=== PATIENT | male | born 1960 | race American Indian/Alaskan Native ===

== ENCOUNTER 2017-03-04 10:52 | Emergency (ER) | payer MEDICAID ==
[2017-03-04 11:09] VITALS: BMI 22.7
[2017-03-04 11:20] VITALS: BP 136/63; PULSE 83; RESP 16; TEMP 97.1; O2SAT 100
--- NOTE | 2017-03-04 13:07 | ED PDOC ---
Lower Extremity Pain/Injury Time Seen by Provider: 03/04/17 11:31 Chief Complaint (Nursing): Lower Extremity Problem/Injury Chief Complaint (Provider): FOOT PAIN History Per: Patient (57 Y/O MALE H/O BUNION REPAIR BY DR. GUIDRY HERE WITH RIGHT FOOT PAIN WORSENING WITH WALKING. PATIENT CONCERNED REGARDING SCREWS THAT ARE IN PLACE OF FOOT. DENIES ANY FEVERS/CHILLS/ETC. ) Past Medical History Reviewed: Historical Data, Nursing Documentation, Vital Signs Vital Signs: Last Vital Signs Temp 97.1 F L 03/04/17 11:20 Pulse 83 03/04/17 11:20 Resp 16 03/04/17 11:20 BP 136/63 03/04/17 11:20 Pulse Ox 100 03/04/17 11:20 - Medical History PMH: Seizures Denies: Chronic Kidney Disease - Family History Family History: States: Unknown Family Hx - Home Medications Home Medications: Ambulatory Orders Medication Instructions Recorded Cephalexin [Keflex] 500 mg PO BID 10/13/15 Enoxaparin [Lovenox] 40 mg SC DAILY 10/13/15 Oxycodone HCl/Acetaminophen 5 - 325 mg PO .Q4-6 PRN 10/13/15 [Percocet 5-325 mg Tablet] Meloxicam 7.5 mg PO DAILY #7 tablet 03/04/17 - Allergies Allergies/Adverse Reactions: Allergies Allergy/AdvReac Type Severity Reaction Status Date / Time No Known Allergies Allergy Verified 11/05/14 12:37 Review of Systems ROS Statement: Except As Marked, All Systems Reviewed And Found Negative Physical Exam - Reviewed Nursing Documentation Reviewed: Yes Vital Signs Reviewed: Yes - Physical Exam Appears: Positive for: Well, Non-toxic, No Acute Distress Head Exam: Positive for: ATRAUMATIC, NORMAL INSPECTION, NORMOCEPHALIC Skin: Positive for: Normal Color, Warm, DRY Eye Exam: Positive for: EOMI, Normal appearance, PERRL ENT: Positive for: Normal ENT Inspection Neck: Positive for: Normal, Painless ROM Cardiovascular/Chest: Positive for: Regular Rate, Rhythm Respiratory: Positive for: CNT, Normal Breath Sounds Gastrointestinal/Abdominal: Positive for: Normal Exam, Bowel Sounds, Soft Back: Positive for: Normal Inspection Extremity: Positive for: Normal ROM, Tenderness (TENDERNESS NOTED DORSUM OF FOOT. NO ERYTHEMA OR SIGNS OF SWELLING. 2+ DP) Neurologic/Psych: Positive for: Alert, Oriented - ECG O2 Sat by Pulse Oximetry: 100 - Progress ED Course And Treament: XRY OF FOOT: SCREWS NOTED. SEEN BY PODIATRY DIAGNOSIS OF TENDONITIS AND F/U IN 1 WEEK AFTER USE OF NSAIDS. Disposition - Clinical Impression Clinical Impression: Tendonitis - Patient ED Disposition Is Patient to be Admitted: No - Disposition Referrals: Podiatry Clinic [Outside] Disposition: Routine/Home Disposition Time: 13:07 Condition: FAIR Additional Instructions: F/U WITH DR. GUIDRY NEXT FRIDAY OR FRIDAY IN PODIATRY CLINIC Prescriptions: Meloxicam 7.5 mg PO DAILY #7 tablet Instructions: Tendinitis (ED) Forms: [facility] ED School/Work Excuse
--- NOTE | 2017-03-04 20:01 | CP.PCM.CON ---
History of Present Illness - History of Present Illness History of Present Illness: 57 year old male patient seen in ED after request for podiatry consultation for left foot and leg pain. Patient states that pain in his lower limb started this past Friday. Patient states that he spent the weekend in the [facility] and was walking around in flip flops or barefoot while in the sand. Patient states this pain develops after long periods of walking. Patient states that he feels the pain on the top of his midfoot and also in his magallanes. Patient describes the pain as achy. Patient frequently wears slippers without good arch support. Patient states he had left foot 1st MPJ fusion done one year ago by Dr. Briones. Patient denies pain to his surgical sites. Patient denies N/V/F/D/C/ SOB/CP. No other pedal complaints at this time. PMH: seizures PSH: Left ankle arthroscopy, left 1st MPJ fusion SH: unknown FH: noncontributory Meds: see meds list All: NKDA Review of Systems - Review of Systems All systems: reviewed and no additional remarkable complaints except (as per HPI ) Past Patient History - Infectious Disease Hx of Infectious Diseases: None - Past Medical History & Family History Past Medical History?: No - Past Social History Smoking Status: Never Smoked - CARDIAC Hx Cardiac Disorders: No - PULMONARY Hx Respiratory Disorders: No - NEUROLOGICAL Hx Seizures: Yes - HEENT Hx HEENT Problems: No - RENAL Hx Chronic Kidney Disease: No - ENDOCRINE/METABOLIC Hx Endocrine Disorders: No - HEMATOLOGICAL/ONCOLOGICAL Hx Blood Disorders: No - INTEGUMENTARY Hx Dermatological Problems: No - MUSCULOSKELETAL/RHEUMATOLOGICAL Hx Musculoskeletal Disorders: No Hx Falls: No - GENITOURINARY/GYNECOLOGICAL Hx Genitourinary Disorders: No - PSYCHIATRIC Hx Physical Abuse: No Hx Substance Use: No - SURGICAL HISTORY Hx Surgeries: Yes Other/Comment: Rigth foot - ANESTHESIA Hx Anesthesia: Yes Hx Anesthesia Reactions: No Hx Malignant Hyperthermia: No Meds Home Medications: Home Medication List Medication Instructions Recorded Confirmed Type Meloxicam 7.5 mg PO DAILY #7 tablet 03/04/17 Rx Allergies/Adverse Reactions: Allergies Allergy/AdvReac Type Severity Reaction Status Date / Time No Known Allergies Allergy Verified 11/05/14 12:37 Physical Exam - Constitutional Appears: Well, Non-toxic, Toxic - Extremities Exam Additional comments: RLE focused physical exam Vasc: DP and PT pulse palpalbe 2/4. CFT <3 seconds to digits x5. TG WNL. No edema noted. Neuro: Gross sensation intact Derm: Well-healed cicatrices from previous 1st MPJ fusion and Delfino osteotomy. No open lesions, rashes, or subcutaneous nodules noted. No erythema noted. Ortho: No pain on palpation noted to foot or leg. Ankle joint ROM full without pain or crepitus noted. - Neurological Exam Neurological exam: Alert, Oriented x3 - Psychiatric Exam Psychiatric exam: Normal Affect, Normal Mood Results - Vital Signs Recent Vital Signs: Last Vital Signs Temp 97.1 F L 03/04/17 11:20 Pulse 83 03/04/17 11:20 Resp 16 03/04/17 11:20 BP 136/63 03/04/17 11:20 Pulse Ox 100 03/04/17 13:09 Assessment & Plan - Assessment and Plan (Free Text) Assessment: 57 year old male with RLE tendinitis and medial tibial stress syndrome Plan: Patient examined and evaluated in ED Discussed with attending Dr. Briones Chart, labs, vitals reviewed = afebrile R Xrays reviewed = no acute fracture noted. no breaks in the soft tissue envelope Recommend RICE therapy Recommend meloxicam 7.5 mg qd Educated patient on importance of wearing stable shoes with good support to prevent inflammation Stable from podiatry standpoint Thank you for this consult, please reconsult again as needed - Date & Time Date: 03/04/17 Time: 12:00
--- NOTE | 2017-03-05 10:43 | RAD ---
PROCEDURE: Right Foot Radiographs. HISTORY: FOOT PAIN COMPARISON: Prior right foot radiographs 08/28/2016. FINDINGS: BONES: Postop changes are again seen with bunionectomy/arthrodesis of the 1st metatarsal bone, 1st interphalangeal joint with the joint fused by a solitary separate screw as well as compression plate and 5 compression screws. Postop changes are also seen related to the 2nd and 4th metatarsal bones distally. Acquired fusion of the proximal end of the 3rd digit is suggested as well as at the 4th digit with the distal interphalangeal also likely fused. No acute fracture dislocation. . JOINTS: Normal. SOFT TISSUES: Normal. OTHER FINDINGS: Pes planus reiterated. Incidental vascular calcifications seen at the hindfoot and ankle soft tissues. IMPRESSION: 1. No acute fracture or dislocation identified. 2. Postop changes seen at the 2nd and 4th metatarsal bones with arthrodesis identified at the 1st metatarsal phalangeal joint as per above. Fusion of the proximal interphalangeal joints of the 3rd and 4th digits is appreciated as well as likely distal implant joint of the 4th digit. 3. Pes planus. 4. No prominent interval change greater prior radiograph 08/28/2016. .
== END 2017-03-04 13:15 | disposition home or self-care (01) ==
LOC: H.ER 10:52
DX: M65.271 Calcific tendinitis, right ankle and foot (principal)

== ENCOUNTER 2017-03-05 07:55 | Emergency (ER) | payer MEDICAID, OTHER ==
[2017-03-05 07:59] VITALS: BP 129/77; PULSE 84; TEMP 97; O2SAT 98
[2017-03-05 08:00] VITALS: BMI 25.6
--- NOTE | 2017-03-05 09:08 | ED PDOC ---
Lower Extremity Pain/Injury Time Seen by Provider: 03/05/17 08:11 Chief Complaint (Nursing): Lower Extremity Problem/Injury Chief Complaint (Provider): right foot pain History Per: Patient History/Exam Limitations: no limitations Onset/Duration Of Symptoms: Days (x 1 week ) Additional Complaint(s): Cristobal Luna is a 57 year old male, with no previous medical history who presents to the ED with complaints of right foot pain to the dorsal aspect of the foot ongoing for the past week. Patient reports being seen in the ED yesterday and reports no relief with medication provided. He reports experiencing similar symptoms last year and was told he had arthritis. PMD: none provided Past Medical History Reviewed: Historical Data, Nursing Documentation, Vital Signs Vital Signs: Last Vital Signs Temp 97 F L 03/05/17 07:58 Pulse 84 03/05/17 07:58 Resp BP 129/77 03/05/17 07:58 Pulse Ox 98 03/05/17 07:58 - Medical History PMH: Seizures Denies: Chronic Kidney Disease - Family History Family History: States: Unknown Family Hx - Home Medications Home Medications: Ambulatory Orders Medication Instructions Recorded Cephalexin [Keflex] 500 mg PO BID 10/13/15 Enoxaparin [Lovenox] 40 mg SC DAILY 10/13/15 Oxycodone HCl/Acetaminophen 5 - 325 mg PO .Q4-6 PRN 10/13/15 [Percocet 5-325 mg Tablet] Meloxicam 7.5 mg PO DAILY #7 tablet 03/04/17 - Allergies Allergies/Adverse Reactions: Allergies Allergy/AdvReac Type Severity Reaction Status Date / Time No Known Allergies Allergy Verified 03/05/17 08:24 Review of Systems ROS Statement: Except As Marked, All Systems Reviewed And Found Negative Musculoskeletal: Positive for: Foot Pain (right ) Physical Exam - Reviewed Nursing Documentation Reviewed: Yes Vital Signs Reviewed: Yes - Physical Exam Appears: Positive for: Well, Non-toxic, No Acute Distress Head Exam: Positive for: ATRAUMATIC, NORMAL INSPECTION, NORMOCEPHALIC Skin: Positive for: Normal Color, Warm, Dry Eye Exam: Positive for: Normal appearance Neck: Positive for: Normal, Painless ROM Cardiovascular/Chest: Positive for: Regular Rate, Rhythm Respiratory: Positive for: CNT, Normal Breath Sounds Gastrointestinal/Abdominal: Positive for: Normal Exam, Bowel Sounds, Soft. Negative for: Tenderness Back: Positive for: Normal Inspection Extremity: Positive for: Normal ROM. Negative for: Tenderness ( no palpable tenderness to the foot), Pedal Edema, Calf Tenderness, Deformity, Swelling Neurologic/Psych: Positive for: Alert, Oriented - ECG O2 Sat by Pulse Oximetry: 98 (RA) Pulse Ox Interpretation: Normal Medical Decision Making Medical Decision Making: Initial Impression: antalgic gait Initial Plan: * podiatry consult 09:00 Podiatry consulted and will be seeing patient at bedside. Scribe Attestation: Documented by Layla Montague, acting as a scribe for Deisy Guillen MD. Provider Scribe Attestation: All medical record entries made by the Scribe were at my direction and personally dictated by me. I have reviewed the chart and agree that the record accurately reflects my personal performance of the history, physical exam, medical decision making, and the department course for this patient. I have also personally directed, reviewed, and agree with the discharge instructions and disposition. 10.15 patient seen by podiatry. injection done in the foot with decadron and marcaine by resident. Patient will followup in the podiatry clinic. Disposition - Clinical Impression Clinical Impression: Foot pain, right - Patient ED Disposition Is Patient to be Admitted: No Doctor Will See Patient In The: Office Counseled Patient/Family Regarding: Diagnosis, Need For Followup - Disposition Referrals: Podiatry Clinic [Outside] Disposition: Routine/Home Disposition Time: 10:15 Condition: IMPROVED Forms: [facility] [employer] [facility] (American) - POA Present On Arrival: None
[2017-03-05] MEDS ORDERED: Dexamethasone 4 mg/1 ml IM STA (10:06)
[2017-03-05] MEDS ORDERED: Bupivacaine 0.5% Inj(30mL) IJ ONE (10:07)
[2017-03-05] MEDS ORDERED: Bupivacaine HCl 0.5% PF (30 ml) Inj ONE (10:11)
--- NOTE | 2017-03-05 11:41 | CP.PCM.CON ---
History of Present Illness - History of Present Illness History of Present Illness: 57 year old male patient seen in ED after request for podiatry consultation for right foot and leg pain. Patient presented to the ED for the same chief complaint and was discharged with Rx meloxicam and RICE therapy, and was educated on the importance of wearing supportive shoes while ambulating. Patient states the Meloxicam has not helped and he still experiences pain with ambulation. Patient states that he still experiences pain around 8/10 whenever ambulating for long periods of time. Patient states that he occasionally feels pain on the inside of his wheel as well. Patient states that he has had a similar problem in the past in his left foot and states that an injection helped to alleviate the pain. Patient denies N/V/F/D/C/SOB/calf pain. No other pedal complaints at this time. PMH: seizures PSH: Left ankle arthroscopy, left 1st MPJ fusion SH: unknown FH: noncontributory Meds: see meds list All: NKDA Review of Systems - Review of Systems All systems: reviewed and no additional remarkable complaints except (as per HPI ) Past Patient History - Infectious Disease Hx of Infectious Diseases: None - Past Medical History & Family History Past Medical History?: No - Past Social History Smoking Status: Never Smoked - CARDIAC Hx Cardiac Disorders: No - PULMONARY Hx Respiratory Disorders: No - NEUROLOGICAL Hx Seizures: Yes - HEENT Hx HEENT Problems: No - RENAL Hx Chronic Kidney Disease: No - ENDOCRINE/METABOLIC Hx Endocrine Disorders: No - HEMATOLOGICAL/ONCOLOGICAL Hx Blood Disorders: No - INTEGUMENTARY Hx Dermatological Problems: No - MUSCULOSKELETAL/RHEUMATOLOGICAL Hx Musculoskeletal Disorders: No Hx Falls: No - GENITOURINARY/GYNECOLOGICAL Hx Genitourinary Disorders: No - PSYCHIATRIC Hx Physical Abuse: No Hx Substance Use: No - SURGICAL HISTORY Hx Surgeries: Yes Other/Comment: Right foot - ANESTHESIA Hx Anesthesia: Yes Hx Anesthesia Reactions: No Hx Malignant Hyperthermia: No Meds Allergies/Adverse Reactions: Allergies Allergy/AdvReac Type Severity Reaction Status Date / Time No Known Allergies Allergy Verified 03/05/17 08:24 Physical Exam - Constitutional Appears: Well, Non-toxic, No Acute Distress - Extremities Exam Additional comments: RLE focused physical exam Vasc: DP and PT pulse palpable 2/4. CFT <3 seconds to digits x5. TG warm to cool. No edema noted. Neuro: Gross sensation intact Derm: Well-healed cicatrices from previous 1st MPJ fusion and Delfino osteotomy. No open lesions, rashes, or subcutaneous nodules noted. No erythema noted. Ortho: No pain on palpation noted to foot or leg. Ankle joint ROM full without pain or crepitus noted. Collapse of medial arch. Patient has an antalgic, apropulsive gait. - Neurological Exam Neurological exam: Alert, Oriented x3 - Psychiatric Exam Psychiatric exam: Normal Affect, Normal Mood Results - Vital Signs Recent Vital Signs: Last Vital Signs Temp 97 F L 03/05/17 07:58 Pulse 84 03/05/17 07:58 Resp BP 129/77 03/05/17 07:58 Pulse Ox 98 03/05/17 11:01 Assessment & Plan - Assessment and Plan (Free Text) Assessment: 57 year old male with RLE tendinitis, arthritis, and medial tibial stress syndrome Plan: Patient examined and evaluated in ED Discussed with attending Dr. Briones Chart, labs, vitals reviewed = afebrile 3ccs 2:1 mixture of 0.5% marcaine plain and 4mg/mL dexamethasone in R TNJ and metatarsal cuneiform joint. Patient tolerated injection well. Recommend continuing RICE therapy Recommend continuing meloxicam 7.5 mg qd Educated patient on importance of wearing stable shoes with good support to prevent inflammation Stable from podiatry standpoint Patient is to follow up in the podiatry clinic with Dr. Briones next week Thank you for this consult, please re-consult again as needed
== END 2017-03-05 11:40 | disposition home or self-care (01) ==
LOC: H.ER 07:55
DX: S83.90XA Sprain of unspecified site of unspecified knee, initial encounter (principal); Y92.89 Other specified places as the place of occurrence of the external cause

== ENCOUNTER 2017-12-10 11:56 | Emergency (ER) | payer OTHER ==
[2017-12-10 11:56] VITALS: BMI 25.6
[2017-12-10 12:28] VITALS: BP 167/81; PULSE 85; RESP 16; TEMP 98; O2SAT 99
--- NOTE | 2017-12-10 12:52 | ED PDOC ---
Upper Extremity Pain/Injury Time Seen by Provider: 12/10/17 12:30 Chief Complaint (Nursing): Finger,Hand,&Wrist Chief Complaint (Provider): Finger,Hand,&Wrist History Per: Patient History/Exam Limitations: no limitations Onset/Duration Of Symptoms: Days (2-3) Current Symptoms Are (Timing): Still Present Additional Complaint(s): 57 y/o male presents to the ED for automatic swelling to the right side of hand x 2-3 days. Patient also noticed swelling to his right thumb x 2-3 days. He complains of pain to the right hand but not right thumb. Patient took Aleve for the pain and used epsom salt which caused swelling to decrease. Denies any fever , rash, numbness, or tingling. PMD: Dr. Geoffrey Alaniz Past Medical History Reviewed: Historical Data, Nursing Documentation, Vital Signs Vital Signs: Last Vital Signs Temp 98.0 F 12/10/17 12:24 Pulse 85 12/10/17 12:24 Resp 16 12/10/17 12:24 BP 167/81 H 12/10/17 12:24 Pulse Ox 99 12/10/17 12:24 - Medical History PMH: Seizures Denies: Chronic Kidney Disease - Surgical History Surgical History: No Surg Hx - Family History Family History: States: No Known Family Hx - Home Medications Home Medications: Ambulatory Orders Medication Instructions Recorded Cephalexin [Keflex] 500 mg PO BID 10/13/15 Enoxaparin [Lovenox] 40 mg SC DAILY 10/13/15 Oxycodone HCl/Acetaminophen 5 - 325 mg PO .Q4-6 PRN 10/13/15 [Percocet 5-325 mg Tablet] Meloxicam 7.5 mg PO DAILY #7 tablet 03/04/17 Meloxicam [Mobic] 7.5 mg PO DAILY PRN #10 tab 12/10/17 - Allergies Allergies/Adverse Reactions: Allergies Allergy/AdvReac Type Severity Reaction Status Date / Time No Known Allergies Allergy Verified 03/05/17 08:24 Review of Systems ROS Statement: Except As Marked, All Systems Reviewed And Found Negative Musculoskeletal: Positive for: Hand Pain (right hand pain), Other (swelling to right thumb) Skin: Negative for: Rash Neurological: Negative for: Numbness Physical Exam - Reviewed Nursing Documentation Reviewed: Yes Vital Signs Reviewed: Yes - Physical Exam Appears: Positive for: Well, Non-toxic, No Acute Distress Skin: Positive for: Normal Color, Warm (no extreme warmth). Negative for: Rash (no erythema, no break in skin integrity to the right hand, no lesions) Eye Exam: Positive for: Normal appearance Pulses-Radial (L): 2+ Pulses-Radial (R): 2+ Extremity: Positive for: Normal ROM, Capillary Refill (less than 2 seconds), Swelling (mild to dorsal right hand and moderate swelling to the first MCP). Negative for: Tenderness (to the dorsal right hand over the first MCP), Pedal Edema, Deformity Neurologic/Psych: Positive for: Alert, Oriented (x3). Negative for: Motor/ Sensory Deficits - ECG O2 Sat by Pulse Oximetry: 99 (RA) Pulse Ox Interpretation: Normal - Radiology X-Ray: Interpreted by Me (R hand x-ray) X-Ray Interpretation: Other (no fx; osteoarthritis to 1st MTP) Medical Decision Making Medical Decision Making: Time: 12:24 Impression: Hand Pain Plan: * X-Ray of the right hand Scribe Attestation: Documented by Orly Gomez acting as a scribe for Kali Hancock PA-C. MD Scribe Attestation: All medical record entries made by the Scribe were at my direction and personally dictated by me. I have reviewed the chart and agree that the record accurately reflects my personal performance of the history, physical exam, medical decision making, and the department course for this patient. I have also personally directed, reviewed, and agree with the discharge instructions and disposition. Disposition - Clinical Impression Clinical Impression: Arthralgia - Patient ED Disposition Is Patient to be Admitted: No - Disposition Referrals: [facility] [Outside] Disposition: Routine/Home Disposition Time: 13:30 Condition: STABLE Additional Instructions: Follow up with [facility] for further evaluation. Return to ED immediately if symptoms worsen. Prescriptions: Meloxicam [Mobic] 7.5 mg PO DAILY PRN #10 tab PRN Reason: pain Instructions: Joint Pain Forms: [facility] (Korean) Print Language: URDU
--- NOTE | 2017-12-10 14:16 | RAD ---
PROCEDURE: Right Hand Radiographs. HISTORY: pain COMPARISON: None. FINDINGS: BONES: No acute fracture. 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 There is angulation at the MCP. Remaining joint spaces and articular surfaces are preserved. SOFT TISSUES: Normal. OTHER FINDINGS: None. IMPRESSION: No acute fracture. 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
== END 2017-12-10 13:48 | disposition home or self-care (01) ==
LOC: H.ER 11:56
DX: M79.641 Pain in right hand (principal)